=== PATIENT | male | born 1980 ===

== ENCOUNTER 2019-12-17 10:46 | Emergency (ER) | payer OTHER ==
[~2019-12-17] VITALS: Ht 175.3 cm; Wt 113.4 kg
[2019-12-17] MEDS ORDERED: MEDROLPACK PO (15:59)
[2019-12-17] MEDS ORDERED: CLEOCIN HCL300 MG PO (15:59)
== END 2019-12-17 16:18 | disposition home or self-care (01) ==
LOC: ER 10:46
DX: K04.7 Periapical abscess without sinus (principal); B96.0 Mycoplasma pneumoniae [M. pneumoniae] as the cause of diseases classified elsewhere